=== PATIENT | male | born 1960 | race Caucasian/White ===

== ENCOUNTER 2018-07-26 23:01 | Emergency (ER) | payer MEDICAID ==
[~2018-07-26] VITALS: Ht 177.8 cm; Wt 69.7 kg
[~2018-07-26 23:01] MED LIST: HALO2TAB PO; SERT50TA10 PO; ZIPR20CA2 PO
[2018-07-26 23:30] VITALS: BP 138/91
[2018-07-27] MEDS ORDERED: ketorolac tromethamine 15mg/ml inj. IM ONE (00:25)
[2018-07-27] MEDS ORDERED: proCHLORperazine 10 MG/2 ml inj IM ONE (00:25)
[2018-07-27] MEDS ORDERED: diphenhydrAMINE 50 mg/ml inj IM ONE (00:25)
== END 2018-07-27 00:59 | disposition home or self-care (01) ==
LOC: ER 23:01
DX: R51 Headache (principal); G89.29 Other chronic pain; F32.9 Major depressive disorder, single episode, unspecified; F20.9 Schizophrenia, unspecified; F12.90 Cannabis use, unspecified, uncomplicated; F15.90 Other stimulant use, unspecified, uncomplicated; Z60.2 Problems related to living alone; Z59.0 Homelessness; Z56.0 Unemployment, unspecified; Z79.899 Other long term (current) drug therapy
CPT/HCPCS: 96372; 99284; J0780; J1200; J1885

== ENCOUNTER 2018-07-27 02:39 | Emergency (ER) | payer MEDICAID ==
[~2018-07-27] VITALS: Ht 177.8 cm; Wt 79.5 kg
[2018-07-27 02:50] VITALS: BP 135/84
== END 2018-07-27 03:01 | disposition home or self-care (01) ==
LOC: ER 02:40
DX: R11.2 Nausea with vomiting, unspecified (principal); G89.29 Other chronic pain; F32.9 Major depressive disorder, single episode, unspecified; F20.9 Schizophrenia, unspecified; F12.90 Cannabis use, unspecified, uncomplicated; F15.90 Other stimulant use, unspecified, uncomplicated; Z60.2 Problems related to living alone; Z59.0 Homelessness; Z56.0 Unemployment, unspecified; Z79.899 Other long term (current) drug therapy
CPT/HCPCS: 99281

== ENCOUNTER 2018-12-30 15:28 | Inpatient (IN) | payer MEDICAID ==
[~2018-12-30] VITALS: Ht 177.8 cm; Wt 71.0 kg
[2018-12-30] MEDS ORDERED: mag hydrox/Alum hydrox/simeth 30ml oral suspension PO PRN (17:35)
[2018-12-30] MEDS ORDERED: magnesium hydroxide 30ml (MOM) UD suspension PO PRN (17:35)
[2018-12-30] MEDS ORDERED: acetaminophen 325mg tablet PO PRN (17:35)
[2018-12-30] MEDS ORDERED: loperamide 2mg capsule PO PRN (17:35)
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
[2018-12-30 18:43] VITALS: BP 96/60
[2018-12-30] MEDS: hydrOXYzine 25 MG tablet PO PRN (19:03)
[2018-12-30] MEDS ORDERED: ibuprofen 200mg tablet PO PRN (19:10)
[2018-12-30] MEDS: ibuprofen 200mg tablet PO PRN (19:40)
[2018-12-30 19:57] VITALS: BP 96/60
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
[2018-12-31 05:55] LABS: HEMOGLOBIN A1C 5.4 % (4.5-6.2)
[2018-12-31 06:08] LABS: CHOL/HDL RATIO 1.6 (0.00-4.99); CHOLESTEROL 122 MG/DL (0-200); HDL CHOLESTEROL 74 MG/DL (35-60); LDL CHOLESTEROL 45 MG/DL (50-100); TRIGLYCERIDES 15 MG/DL (20-135)
[2018-12-31 08:00] VITALS: BP 113/76
[2018-12-31] MEDS: LORazepam 1 MG tablet PO PRN (08:21)
[2018-12-31] MEDS: ibuprofen 200mg tablet PO PRN (08:27)
--- NOTE | 2018-12-31 11:03 | NUR ---
Malnutrition consult: Pt reports 50 lb wt loss in the last three months. Per records pt weighed 69.7 kg 07/26/18 taken with a chair scale, current documented wt is 71 kg taken with standing scale. No apparent wt loss. Pt currently on regular diet documented with 100% PO intake meeting nutrient needs. No edema. Pt currently does not meet criteria for malnutrition. Will continue to follow. Addendum: 12/31/18 at [address] Amended: Links added.
[2018-12-31] MEDS ORDERED: NO HOME MEDS (15:41)
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
[2018-12-31] MEDS: acetaminophen 325mg tablet PO PRN (18:57)
[2018-12-31 20:00] VITALS: BP 115/55
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
[2019-01-01 08:00] VITALS: BP 109/75
[2019-01-01] MEDS: LORazepam 1 MG tablet PO PRN ×2 (08:28→17:28)
[2019-01-01] MEDS: lurasidone 20mg tablet PO SCH (08:28)
[2019-01-01] MEDS: ibuprofen 200mg tablet PO PRN (08:30)
[2019-01-01] MEDS: acetaminophen 325mg tablet PO PRN (17:41)
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
[2019-01-01 20:00] VITALS: BP 105/53
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
[2019-01-02 07:30] VITALS: BP 119/64
[2019-01-02] MEDS: lurasidone 20mg tablet PO SCH (07:36)
[2019-01-02] MEDS: acetaminophen 325mg tablet PO PRN ×2 (08:06→19:41)
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
[2019-01-02] MEDS: LORazepam 1 MG tablet PO PRN (17:51)
[2019-01-02] MEDS: ibuprofen 200mg tablet PO PRN (17:51)
[2019-01-02 19:40] VITALS: BP 122/51
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
[2019-01-03] MEDS: lurasidone 20mg tablet PO SCH (07:38)
[2019-01-03] MEDS: ibuprofen 200mg tablet PO PRN (07:50)
[2019-01-03 07:52] VITALS: BP 125/71
[2019-01-03] MEDS ORDERED: docusate sod 100mg capsule PO ONE (10:40)
--- NOTE | 2019-01-03 11:23 | NUR ---
Initial: Pt admitted for suicidal ideations. Per MD note pt with hx of alcohol abuse, d/w RN recommendation for routine thiamine, folic acid and MVI. Pt wt stable, currently bedscale wt documented at 71kg. Pt eating well, PO intake 75-100% on regular diet meeting nutrient needs. Pt documented as constipated with small BM today, however documented with a small and moderate BM yesterday, now receiving routine colace. No nutrient dx at this time. Will continue to follow. Recommendation: 1. Continue regular diet 2. Thiamine, Folic acid and MVI for alcohol hx with MD approval 3. Routine bowel care 4. Weekly weights Addendum: 01/03/19 at 1124 by Wing Taz PEDRO Amended: Links added. Addendum: 01/03/19 at [address] I have reviewed and agree with note by Scrap Breaker. Kassidy Cruz RD
[2019-01-03] MEDS: LORazepam 1 MG tablet PO PRN (15:18)
[2019-01-03] MEDS ORDERED: NICOTINE POLACRILEX 2 MG LOZENGE BC PRN (16:20)
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
[2019-01-03 20:22] VITALS: BP 118/78
[2019-01-03] MEDS: thiamine 100mg tablet PO SCH (20:47)
[2019-01-03] MEDS: hydrOXYzine 25 MG tablet PO PRN (20:48)
[2019-01-03] MEDS: docusate sod 100mg capsule PO SCH (20:48)
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
[2019-01-04] MEDS: hydrOXYzine 25 MG tablet PO PRN (06:21)
[2019-01-04 07:30] VITALS: BP 114/85
[2019-01-04] MEDS ORDERED: lurasidone 20mg tablet PO SCH (07:30)
[2019-01-04] MEDS: thiamine 100mg tablet PO SCH ×2 (07:48→20:34)
[2019-01-04] MEDS: docusate sod 100mg capsule PO SCH ×2 (07:50→20:35)
[2019-01-04] MEDS ORDERED: folic acid 1mg tablet PO SCH (08:00)
[2019-01-04] MEDS ORDERED: multivitamins, therapeutics tablet PO SCH (08:00)
--- NOTE | 2019-01-04 08:01 | NUR ---
DISCHARGE PLANNING Met with Ct yesterday and provided with with the phone number for [facility] so he could call is PO to discuss [facility] paying for him to go to a [facility]. Ct later reported he called and left a message. MARIO ALBERTO Alves
[2019-01-04] MEDS ORDERED: FLU VACC QS2019-20 36MOS UP/PF 60 MCG/0.5 ML SYRINGE IMVAC ONE (10:00)
[2019-01-04] MEDS: ibuprofen 200mg tablet PO PRN (17:14)
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
[2019-01-04 19:39] VITALS: BP 116/68
[2019-01-04] MEDS ORDERED: lithium carbonate 150mg capsule PO SCH (21:00)
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
[2019-01-05] MEDS: hydrOXYzine 25 MG tablet PO PRN (00:14)
[2019-01-05 02:23] VITALS: BP 130/60
[2019-01-05] MEDS ORDERED: lurasidone 20mg tablet PO SCH (07:30)
[2019-01-05 07:40] VITALS: BP 111/60
--- NOTE | 2019-01-05 08:30 | NUR ---
Patient refused all AM medications.
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
--- NOTE | 2019-01-05 09:56 | NUR ---
Discharge Note: Pt. discharged AMA to the street (Pt. is homeless). Pt. signed AMA form but refused to sign all other forms. Pt. discharged with all belongings. Pt. denies SI/HI,A/V hallucinations. Pt. informed on crisis resources and to call 911 in emergency, verbalized understanding.
== END 2019-01-05 09:56 | disposition left against medical advice (07) | DRG 753 ==
LOC: ADULT MH 15:28
PROVIDERS: ADMIT Psychiatry & Neurology Psychiatry; ATTEND Psychiatry & Neurology Psychiatry
DX: F31.30 Bipolar disorder, current episode depressed, mild or moderate severity, unspecified (principal); R45.851 Suicidal ideations; E11.9 Type 2 diabetes mellitus without complications; E78.00 Pure hypercholesterolemia, unspecified; F10.20 Alcohol dependence, uncomplicated; F15.10 Other stimulant abuse, uncomplicated; Z53.29 Procedure and treatment not carried out because of patient's decision for other reasons; F41.9 Anxiety disorder, unspecified; F17.210 Nicotine dependence, cigarettes, uncomplicated; Y90.9 Presence of alcohol in blood, level not specified; F12.10 Cannabis abuse, uncomplicated; F20.9 Schizophrenia, unspecified; Z23 Encounter for immunization; Z91.5 Personal history of self-harm; Z71.6 Tobacco abuse counseling; Z59.0 Homelessness
CPT/HCPCS: 36415; 80061; 83036; 84443; 87081; 99285; Q2037; Z7610

== ENCOUNTER 2019-02-17 16:52 | Emergency (ER) | payer MEDICAID ==
[~2019-02-17] VITALS: Ht 177.8 cm; Wt 78.0 kg
[2019-02-17 17:35] VITALS: BP 116/58
[2019-02-17 18:00] LABS: BASOPHILS % (AUTO) 0.3 % (0-1); EOSINOPHILS # (AUTO) 0.1 X10'3 (0-0.9); EOSINOPHILS % (AUTO) 2.2 % (0-6); HEMATOCRIT 44.5 % (42.0-52.0); HEMOGLOBIN 15.6 g/dl (14.0-17.9); LYMPHOCYTES # (AUTO) 0.5 X10'3 (1.1-4.8); MEAN CORPUSCULAR VOLUME 97.1 FL (78-98); MEAN PLATELET VOLUME 7.4 FL (7.4-10.4); MONOCYTES # (AUTO) 0.5 X10'3 (0-0.9); MONOCYTES % (AUTO) 9.1 % (2-12); NEUTROPHILS # (AUTO) 4.2 X10'3 (1.8-7.7); NEUTROPHILS % (AUTO) 79.4 % (42-75); PLATELET COUNT 175 X10'3 (140-440); RED BLOOD COUNT 4.58 X10'6 (4.70-6.10); RED CELL DISTRIBUTION WIDTH 14.1 % (11.5-14.5); WHITE BLOOD COUNT 5.3 X10'3 (4.5-11.0)
[2019-02-17 18:30] LABS: ALANINE AMINOTRANSFERASE 29 U/L (12-78); ALBUMIN 3.9 G/DL (3.4-5.0); ALBUMIN/GLOBULIN RATIO 1.3 (1.1-1.5); ALKALINE PHOSPHATASE 60 IU/L (46-116); ANION GAP 11 (8-16); ASPARTATE AMINO TRANSFERASE 33 U/L (10-37); BILIRUBIN,TOTAL 0.5 MG/DL (0.1-1.0); BLOOD UREA NITROGEN 22 MG/DL (7-18); BUN/CREATININE RATIO 29.3 (5.4-32.0); CALCIUM 8.7 MG/DL (8.5-10.1); CHLORIDE 103 MMOL/L (99-107); CREATININE 0.75 MG/DL (0.60-1.10); GLUCOSE 86 MG/DL (70-104); LIPASE 139 U/L (73-393); POTASSIUM 3.5 MMOL/L (3.5-5.1); SODIUM 139 MMOL/L (135-145); TOTAL CARBON DIOXIDE 25.2 MMOL/L (24-32); TOTAL PROTEIN 6.9 G/DL (6.4-8.2); eGFR > 90 ML/MIN
[2019-02-17 19:25] LABS: CLARITY,URINE SLIGHTLY CLOUDY (Clear); GLUCOSE, URINE NEGATIVE (Neg); KETONES,URINE 15 mg/dl (Neg); LEUKOCYTE ESTERASE ,URINE NEGATIVE (Neg); NITRITES, URINE NEGATIVE (Neg); OCCULT BLOOD,URINE NEGATIVE (Neg); PH,URINE 5.5 (4.8-8.0); PROTEIN,URINE NEGATIVE (Neg); UROBILINOGEN,URINE 0.2 E.U/dL (0.2-1.0)
[2019-02-17 19:34] LABS: COLOR,URINE DARK YELLOW (Yellow); UA COLLECTION TYPE NON-SPECIFIED
[2019-02-17] MEDS ORDERED: DIPH1TAB PO (19:39)
[2019-02-17] MEDS ORDERED: ONDA4TAB6 PO (19:39)
[2019-02-17 19:40] LABS: BACTERIA,URINE NONE SEEN /HPF (Neg); MUCUS STRANDS MANY /LPF (Neg); RBC,URINE 0-2 /HPF (0-2); SQUAMOUS EPITHELIAL CELL,UR FEW /LPF (FEW); WBC,URINE 0-4 /HPF (0-4)
[2019-02-17] MEDS ORDERED: magnesium 2GM in 50ml NS 50 ML IV ONE (19:40)
[2019-02-17] MEDS ORDERED: diphenoxylate/atropine tablet (Lomotil) PO ONE (19:40)
[2019-02-17] MEDS ORDERED: normal saline 1000ML IV soln IVB ONE (19:40)
[2019-02-17] MEDS ORDERED: ondansetron/PF 4mg/2ml inj IV ONE (19:40)
[2019-02-17 19:41] LABS: TRANSITIONAL EPI CELLS,URINE FEW /HPF
[2019-02-17 19:51] LABS: ETHANOL 0.051 GM/DL (0.0-0.010)
[2019-02-17 20:35] LABS: URINE AMPHETAMINE SCREEN POSITIVE (Neg); URINE BARBITUATE SCREEN NEGATIVE (Neg); URINE BENZODIAZEPINES SCREEN NEGATIVE (Neg); URINE CANNABINOID SCREEN POSITIVE (Neg); URINE COCAINE SCREEN NEGATIVE (Neg); URINE METHADONE SCREEN NEGATIVE (Neg); URINE OPIATE SCREEN NEGATIVE (Neg); URINE PHENCYCLIDINE SCREEN NEGATIVE (Neg)
== END 2019-02-17 21:13 | disposition home or self-care (01) ==
LOC: ER 16:53
DX: K52.9 Noninfective gastroenteritis and colitis, unspecified (principal); E86.0 Dehydration; F15.10 Other stimulant abuse, uncomplicated; G89.29 Other chronic pain; F12.90 Cannabis use, unspecified, uncomplicated; Z59.0 Homelessness; Z56.0 Unemployment, unspecified
CPT/HCPCS: 36415; 80053; 80305; 80320; 81001; 83690; 83735; 85025; 96365; 96375; 99283; J2405; J3475; J7030

== ENCOUNTER 2019-03-21 14:34 | Emergency (ER) | payer MEDICAID ==
[~2019-03-21] VITALS: Ht 180.3 cm; Wt 76.8 kg
[~2019-03-21 14:34] MED LIST changes: +DIPH1TAB PO; -HALO2TAB PO; +ONDA4TAB6 PO; -SERT50TA10 PO; -ZIPR20CA2 PO
[2019-03-21 15:02] VITALS: BP 140/83
[2019-03-21] MEDS ORDERED: GABA-532 PO (15:27)
== END 2019-03-21 15:39 | disposition home or self-care (01) ==
LOC: ER 14:34
DX: Z02.79 Encounter for issue of other medical certificate (principal); F15.10 Other stimulant abuse, uncomplicated; F10.10 Alcohol abuse, uncomplicated; G89.29 Other chronic pain; F32.9 Major depressive disorder, single episode, unspecified; F20.9 Schizophrenia, unspecified; F12.10 Cannabis abuse, uncomplicated; Z59.0 Homelessness; Z56.0 Unemployment, unspecified
CPT/HCPCS: 99284